=== PATIENT | female | born 1965 | race American Indian/Alaskan Native ===

== ENCOUNTER 2019-04-22 14:49 | Emergency (ER) | payer SELFPAY ==
[2019-04-22] MEDS ORDERED: ASPIRIN PO ONE (14:59)
[2019-04-22 16:06] LABS: Basophils % (Auto) 0.4 % (0.0-1.8); Eosinophils # (Auto) 0.1 K/mm3 (0.0-0.4); Eosinophils % (Auto) 1.1 % (0.0-4.3); Hematocrit 29.6 % (30.3-42.9); Hemoglobin 9.5 gm/dl (10.1-14.3); Lymphocytes # (Auto) 2.6 K/mm3 (1.2-5.4); Lymphocytes % (Auto) 27.7 % (13.4-35.0); Mean Corpuscular HGB Conc 32 % (30-34); Mean Corpuscular Volume 69 fl (79-97); Monocytes # (Auto) 0.6 K/mm3 (0.0-0.8); Monocytes % (Auto) 6.1 % (0.0-7.3); Platelet Count 304 K/mm3 (140-440); Red Cell Distribution Width 22.4 % (13.2-15.2)
[2019-04-22 16:16] LABS: BUN/Creatinine Ratio 9; Blood Urea Nitrogen 6 mg/dL (7-17); Calcium 8.7 mg/dL (8.4-10.2); Hemolysis Index 1
--- NOTE | 2019-04-22 16:37 | XRay Report ---
CHEST 1 VIEW INDICATION / CLINICAL INFORMATION: Chest Pain. COMPARISON: None available. FINDINGS: SUPPORT DEVICES: None. HEART / MEDIASTINUM: No significant abnormality. LUNGS / PLEURA: No significant pulmonary or pleural abnormality. No pneumothorax. ADDITIONAL FINDINGS: No significant additional findings. IMPRESSION: 1. No significant change Signer Name: Bright Morris MD Signed: 04/22/2019 4:32 PM Workstation Name: [id number]
--- NOTE | 2019-04-22 16:45 | Emergency Department Report ---
ED Chest Pain HPI - General Chief Complaint: Chest Pain Stated Complaint: SOB/CHEST PAIN Time Seen by Provider: 04/22/19 16:35 Source: patient Mode of arrival: Ambulatory Limitations: No Limitations - History of Present Illness Initial Comments: Patient is 53 years old female with history of hypertension, diabetes and asthma. Patient presented to the ER complaining of substernal chest pain for the last 2 days on and off. Patient described her pain as 2 out of 10 with no radiation. Patient stated that she has been coughing greenish sputum. Patient denied any fever or chills. MD Complaint: chest pain Onset: during rest Pain Location: substernal Severity scale (0 -10): 2 Quality: sharp Other Symptoms: cough - Related Data Previous Rx's Medication Instructions Recorded Last Taken Type ALBUTEROL Inhaler (OR & NICU) 2 puff IH QID PRN #1 inhalation 04/22/19 Unknown Rx [ProAir HFA Inhaler] Lisinopril/Hydrochlorothiazide 1 tab PO QDAY #30 tab 04/22/19 Unknown Rx [Zestoretic 20-25 mg] metFORMIN [Glucophage] 500 mg PO BID #60 tablet 04/22/19 Unknown Rx Allergies Allergy/AdvReac Type Severity Reaction Status Date / Time No Known Allergies Allergy Verified 04/22/19 14:53 Heart Score - HEART Score History: Slightly suspicious EKG: Non-specific Age: 45-65 Risk factors: 1-2 risk factors Troponin: < normal limit HEART Score: 3 - Critical Actions Critical Actions: 0-3 pts:0.9-1.7%risk of adverse cardiac event.Candidate for discharge ED Review of Systems ROS: Stated complaint: SOB/CHEST PAIN Other details as noted in HPI Comment: All other systems reviewed and negative Respiratory: cough. denies: shortness of breath, SOB with exertion Cardiovascular: chest pain Gastrointestinal: denies: abdominal pain, nausea, vomiting, diarrhea, constipation, hematemesis, melena, hematochezia Musculoskeletal: denies: back pain Neurological: denies: headache, weakness ED Past Medical Hx - Past Medical History Previous Medical History?: Yes Hx Hypertension: Yes Hx Diabetes: Yes Additional medical history: hyperlipidemia - Surgical History Past Surgical History?: Yes Additional Surgical History: gallstone laser removal - Social History Smoking Status: Never Smoker - Medications Home Medications: Home Medications Medication Instructions Recorded Confirmed Last Taken Type ALBUTEROL Inhaler (OR & NICU) 2 puff IH QID PRN #1 inhalation 04/22/19 Unknown Rx [ProAir HFA Inhaler] Lisinopril/Hydrochlorothiazide 1 tab PO QDAY #30 tab 04/22/19 Unknown Rx [Zestoretic 20-25 mg] metFORMIN [Glucophage] 500 mg PO BID #60 tablet 04/22/19 Unknown Rx ED Physical Exam - General Limitations: No Limitations General appearance: alert, in no apparent distress - Head Head exam: Present: atraumatic, normocephalic, normal inspection - Eye Eye exam: Present: normal appearance, PERRL - ENT ENT exam: Present: normal exam, normal orophraynx, mucous membranes moist - Neck Neck exam: Present: normal inspection, full ROM. Absent: tenderness, meningismus, lymphadenopathy, thyromegaly - Respiratory Respiratory exam: Present: normal lung sounds bilaterally. Absent: respiratory distress, wheezes, rales, rhonchi, stridor, chest wall tenderness, accessory muscle use, decreased breath sounds, prolonged expiratory - Cardiovascular Cardiovascular Exam: Present: regular rate, normal rhythm, normal heart sounds - GI/Abdominal GI/Abdominal exam: Present: soft, normal bowel sounds. Absent: distended, tenderness, guarding, rebound, rigid, organomegaly, mass, bruit, pulsatile mass - Extremities Exam Extremities exam: Present: normal inspection, full ROM, normal capillary refill. Absent: pedal edema, calf tenderness - Back Exam Back exam: Present: normal inspection, full ROM. Absent: CVA tenderness (R), paraspinal tenderness, vertebral tenderness - Neurological Exam Neurological exam: Present: alert, oriented X3, CN II-XII intact, normal gait, reflexes normal - Psychiatric Psychiatric exam: Present: normal mood - Skin Skin exam: Present: warm, intact, normal color ED Course Vital Signs 04/22/19 04/22/19 04/22/19 14:57 16:32 16:33 Temperature 98.1 F Pulse Rate 77 69 Respiratory 20 17 17 Rate Blood Pressure Blood Pressure 209/98 [Left] O2 Sat by Pulse 100 100 Oximetry 04/22/19 04/22/19 04/22/19 16:45 17:01 18:02 Temperature Pulse Rate 80 67 Respiratory 17 17 Rate Blood Pressure 188/96 188/96 199/87 Blood Pressure [Left] O2 Sat by Pulse 100 100 Oximetry 04/22/19 04/22/19 04/22/19 18:12 18:15 18:31 Temperature Pulse Rate 74 Respiratory Rate Blood Pressure 222/102 222/102 203/89 Blood Pressure [Left] O2 Sat by Pulse 100 100 Oximetry 04/22/19 04/22/19 04/22/19 18:45 18:52 19:00 Temperature 98.0 F Pulse Rate 75 Respiratory 18 Rate Blood Pressure 207/85 194/91 Blood Pressure 206/93 [Left] O2 Sat by Pulse 100 100 100 Oximetry ED Medical Decision Making - Lab Data Result diagrams: 04/22/19 15:44 04/22/19 15:44 - EKG Data -: EKG Interpreted by Ri EKG shows normal: sinus rhythm Rate: normal - EKG Data Interpretation: no acute changes - Radiology Data Radiology results: report reviewed - Medical Decision Making Patient is 53 years old female with history of hypertension, diabetes and asthma. Patient presented to the ER complaining of substernal chest pain for the last 2 days on and off. Patient described her pain as 2 out of 10 with no radiation. Patient stated that she has been coughing greenish sputum. Patient denied any fever or chills. EKG showed no ST elevation or depression. Labs reviewed and is unremarkable including 2 sets of troponin. Chest x-ray is unremarkable. No clinical evidence of pulmonary embolism. Patient symptoms is more consistent with acute bronchitis. However patient also advised to follow-up with her primary care physician for outpatient cardiac workup. Patient also advised to return to the ER if symptoms are not improved. Patient is out of her albuterol, metformin and Prinivil and asking for refill on this medication. Critical care attestation.: If time is entered above; I have spent that time in minutes in the direct care of this critically ill patient, excluding procedure time. ED Disposition Clinical Impression: Chest pain, Acute bronchitis Disposition: -01 TO HOME OR SELFCARE Is pt being admited?: No Condition: Stable Instructions: Chest Pain (ED), Acute Bronchitis (ED) Prescriptions: metFORMIN [Glucophage] 500 mg PO BID #60 tablet ALBUTEROL Inhaler (OR & NICU) [ProAir HFA Inhaler] 2 puff IH QID PRN #1 inhalation PRN Reason: Shortness Of Breath Lisinopril/Hydrochlorothiazide [Zestoretic 20-25 mg] 1 tab PO QDAY #30 tab Referrals: [facility] [Provider Group] - 3-5 Days
[2019-04-22] MEDS ORDERED: CATAPRES ONE (18:11)
[2019-04-22] MEDS ORDERED: CATAPRES PO ONE (18:11)
[2019-04-22 19:02] VITALS: BP 194/91
[2019-04-22] MEDS ORDERED: DECADRON IM ONE (19:04)
== END 2019-04-22 19:30 | disposition home or self-care (01) ==
LOC: ED 14:49
DX: J20.9 Acute bronchitis, unspecified (principal); I10 Essential (primary) hypertension; J45.909 Unspecified asthma, uncomplicated; E78.5 Hyperlipidemia, unspecified; E11.9 Type 2 diabetes mellitus without complications; Z79.84 Long term (current) use of oral hypoglycemic drugs; Z79.899 Other long term (current) drug therapy
CPT/HCPCS: 36415; 71045; 80048; 84484; 85025; 93005; 93010; 96372; 99284; J1100